=== PATIENT | female | born 1960 | race Caucasian/White ===

== ENCOUNTER 2021-12-22 13:24 | Emergency (ER) | payer OTHER, SELFPAY ==
--- NOTE | 2021-12-22 13:30 | ED.EYEPROB ---
HPI - Eye Problem General Chief complaint: Eye Problems Stated complaint: Bilateral Eye Irritation Source: patient, RN notes reviewed and old records reviewed Mode of arrival: ambulatory Limitations: no limitations History of Present Illness HPI Narrative: 61 year old female who presents to [facility] care with complaints of bilateral eye redness with irritation, itching and drainage and excessive watering since Saturday for right eye and since evening for left eye. Patient denies any visual disturbance, no acute pain stated to her eyes or any injury or foreign body to her eyes. Patient reports that she has had some sneezing and nasal drainage with her eye symptoms also, denies any fevers, chills or sweats.Visual acuity 20/20 right eye Left eye 20/25 no glasses chief complaint: eye redness Onset (ago): day(s) (2) Onset description: gradual Duration: progressively worsening Location: both eyes Eye Symptoms: redness, itching, discharge and other (irritation and increased watering) Treatments Prior to Arrival: irrigated eye Related Data Home Medications Medication Instructions Recorded Confirmed alprazolam 0.5 mg tablet 1 tablet PO DAILY 12/22/21 12/22/21 atorvastatin 40 mg tablet 1 tablet PO DAILY 12/22/21 12/22/21 fenofibrate 160 mg tablet 1 tablet PO DAILY 12/22/21 12/22/21 hydrochlorothiazide 25 mg tablet 1 tablet PO DAILY 12/22/21 12/22/21 omeprazole 40 mg capsule,delayed 1 cap PO DAILY 12/22/21 12/22/21 release phentermine 37.5 mg tablet 0.5 tablet PO DAILY 12/22/21 12/22/21 topiramate 100 mg tablet 1 tablet PO DAILY 12/22/21 12/22/21 Allergies Allergy/AdvReac Type Severity Reaction Status Date / Time No Known Allergies Allergy Mild Verified 12/22/21 13:25 Review of Systems Review of Systems: CONSTITUTIONAL: Denies fever, chills, or sweats. EYES: Denies visual changes, positive for bilateral redness, or discharge, excessive watering ENT: Denies rhinorrhea, congestion, sore throat, or otalgia. CARDIOVASCULAR: Denies chest pain, palpitations, or edema. RESPIRATORY: Denies cough or dyspnea. GASTROINTESTINAL: Denies abdominal pain, nausea, vomiting, or diarrhea. GENITOURINARY: Denies dysuria or hematuria. SKIN: Denies rash or itching. MUSCULOSKELETAL: Denies back pain, joint pain, or myalgia. NEUROLOGIC: Denies headache, numbness, or weakness. PSYCHIATRIC: Denies anxiety or depression. All systems reviewed & are unremarkable except as noted in HPI and below PMFSH Past Medical History Medical History (Updated 12/23/21 @ 18:23 by Kalani Griffin NP) Elevated cholesterol GERD (gastroesophageal reflux disease) Hypertension Surgical History Surgical History (Updated 12/23/21 @ 18:24 by Kalani Griffin NP) History of cholecystectomy S/p bilateral carpal tunnel release Tubal ligation status Social History Social History (Updated 12/23/21 @ 18:27 by Kalani Griffin NP) Smoking status: Never smoker Alcohol intake: current Alcohol use details: Rare social Substance use: never Living arrangements: with family Gender identity (if verbalized by the patient): Female Comments At time of signature, agree with nursing past medical, surgical, social and family history. There is no relevant family history pertinent to the presenting complaint Exam Narrative: GENERAL: Well-appearing, well-nourished, and in no acute distress. HEAD: Normocephalic, atraumatic. EYES: PERRLA and EOMI. bilateral sclera redness with conjunctival redness on right yellow drainage bilaterally no acute pain eyes, itchy ENT: Nares clear, no rhinorrhea or epistaxis. Mucous membranes moist. NECK: Supple. No lymphadenopathy CHEST: Clear to auscultation. No respiratory distress. SaO2 100% on room air HEART: Regular rate and rhythm. No murmur heard. Normal peripheral pulses. ABDOMEN: Soft, nontender, nondistended, normal active bowel sounds. EXTREMITIES: Normal range of motion. No edema. SKIN: Warm, dry, no rash. NEURO
[2021-12-22 13:34] VITALS: BP 138/83; PULSE 77; RESP 12; TEMP 36.6; O2SAT 100
== END 2021-12-22 13:58 | disposition home or self-care (01) ==
PROVIDERS: Emergency Provider Registered Nurse; PCP Internal Medicine
DX: H10.9 Unspecified conjunctivitis (principal); E78.00 Pure hypercholesterolemia, unspecified; K21.9 Gastro-esophageal reflux disease without esophagitis; I10 Essential (primary) hypertension
CPT/HCPCS: 99213; G0463

== ENCOUNTER 2023-01-27 13:05 | Emergency (ER) | payer OTHER, SELFPAY ==
[2023-01-27 13:23] VITALS: BP 127/77; PULSE 90; RESP 18; TEMP 36.3; O2SAT 98
--- NOTE | 2023-01-27 13:40 | ED.GENADULT ---
HPI - General Adult General Chief complaint: Skin/Abscess/Foreign Body Stated complaint: lower extemity pain Time Seen by Provider: 01/27/23 13:40 Source: patient Mode of arrival: ambulatory Limitations: no limitations History of Present Illness HPI narrative: 63-year-old female patient presents to the [facility] with complaints of left lower extremity pain. Patient states that she thinks she might have been bit by a spider but started having itchiness to the leg and notice redness, warmth and swelling to the left lower leg yesterday. Related Data Home Medications Medication Instructions Recorded Confirmed alprazolam 0.5 mg tablet 1 tablet PO DAILY 12/22/21 01/27/23 fenofibrate 160 mg tablet 1 tablet PO DAILY 12/22/21 01/27/23 hydrochlorothiazide 25 mg tablet 1 tablet PO DAILY 12/22/21 01/27/23 omeprazole 40 mg capsule,delayed 1 cap PO DAILY 12/22/21 01/27/23 release phentermine 37.5 mg tablet 0.5 tablet PO DAILY 12/22/21 01/27/23 topiramate 100 mg tablet 1 tablet PO DAILY 12/22/21 01/27/23 ergocalciferol (vitamin D2) 1,250 1,250 mcg PO DAILY 01/27/23 01/27/23 mcg (50,000 unit) capsule terbinafine HCl 250 mg tablet 250 mg PO DAILY 01/27/23 01/27/23 Allergies Allergy/AdvReac Type Severity Reaction Status Date / Time meloxicam Allergy Diarrhea Verified 01/27/23 13:38 Review of Systems Review of Systems: CONSTITUTIONAL: Denies fever, chills, or sweats. EYES: Denies visual changes, redness, or discharge. ENT: Denies rhinorrhea, congestion, sore throat, or otalgia. CARDIOVASCULAR: Denies chest pain, palpitations, or edema. RESPIRATORY: Denies cough or dyspnea. GASTROINTESTINAL: Denies abdominal pain, nausea, vomiting, or diarrhea. GENITOURINARY: Denies dysuria or hematuria. SKIN: Denies rash or itching. Positive lower extremity rash/pain since yesterday MUSCULOSKELETAL: Denies back pain, joint pain, or myalgia. NEUROLOGIC: Denies headache, numbness, or weakness. PSYCHIATRIC: Denies anxiety or depression. [facility] Past Medical History Medical History Elevated cholesterol GERD (gastroesophageal reflux disease) Hypertension Surgical History Surgical History History of cholecystectomy S/p bilateral carpal tunnel release Tubal ligation status Social History Social History Smoking status: Never smoker Alcohol intake: current Alcohol use details: Rare social Substance use: never Living arrangements: with family Gender identity (if verbalized by the patient): Female Comments At the time of my signature I agree with nursing past medical history, surgical, social, and family history. There is no relevant family history pertinent to the presenting complaint. Exam Narrative: GENERAL: Well-appearing, well-nourished, and in no acute distress. HEAD: Normocephalic, atraumatic. EYES: PERRLA and EOMI. ENT: Nares clear, no rhinorrhea or epistaxis. Mucous membranes moist. NECK: Supple. No lymphadenopathy CHEST: Clear to auscultation. No respiratory distress. HEART: Regular rate and rhythm. No murmur heard. Normal peripheral pulses. ABDOMEN: Soft, nontender, nondistended, normal active bowel sounds. EXTREMITIES: Normal range of motion. No edema. SKIN: Warm, dry, no rash. patient does have a distinct line of redness from the mid anterior calf all the way down to her foot. It is red, warm to the touch and there does appear to be some bites to the back calf area. No obvious abscess noted anywhere. NEURO: No focal deficits. Alert and oriented x3. Course Course Level of Care: Express Care Visit Vital Signs Vital signs: Vital Signs Temperature 36.3 C L 01/27/23 13:23 Pulse Rate 90 01/27/23 13:23 Respiratory Rate 18 01/27/23 13:23 Blood Pressure 127/77 01/27/23 13:23 Pulse Oximetry 98 01/27/23 13:23 Oxygen Delivery
== END 2023-01-27 13:58 | disposition home or self-care (01) ==
PROVIDERS: Emergency Provider Nurse Practitioner Family
DX: L03.116 Cellulitis of left lower limb (principal); E78.00 Pure hypercholesterolemia, unspecified; K21.9 Gastro-esophageal reflux disease without esophagitis; I10 Essential (primary) hypertension
CPT/HCPCS: 99213; G0463

== ENCOUNTER 2024-06-21 13:59 | Emergency (ER) | payer OTHER, SELFPAY ==
[2024-06-21 14:15] VITALS: BP 96/59; PULSE 84; RESP 18; TEMP 36.7; O2SAT 96
--- NOTE | 2024-06-21 14:31 | ED_ITS ---
HPI - General Adult General Chief complaint: Upper Respiratory Infection Stated complaint: congestion Time Seen by Provider: 06/21/24 14:31 Source: patient Mode of arrival: ambulatory Limitations: no limitations Related Data Home Medications ?Medication ?Instructions ?Recorded ?Confirmed ?Last Taken ?Type alprazolam 0.5 mg tablet 1 tablet PO DAILY 12/22/21 01/27/23 Unknown History fenofibrate 160 mg tablet 1 tablet PO DAILY 12/22/21 01/27/23 Unknown History hydrochlorothiazide 25 mg tablet 1 tablet PO DAILY 12/22/21 01/27/23 Unknown History omeprazole 40 mg capsule,delayed 1 cap PO DAILY 12/22/21 01/27/23 Unknown History release phentermine 37.5 mg tablet 0.5 tablet PO DAILY 12/22/21 01/27/23 Unknown History topiramate 100 mg tablet 1 tablet PO DAILY 12/22/21 01/27/23 Unknown History ergocalciferol (vitamin D2) 1,250 1,250 mcg PO DAILY 01/27/23 01/27/23 Unknown History mcg (50,000 unit) capsule terbinafine HCl 250 mg tablet 250 mg PO DAILY 01/27/23 01/27/23 Unknown History Allergies Allergy/AdvReac Type Severity Reaction Status Date / Time meloxicam AdvReac Intermediate Diarrhea Verified 06/21/24 14:14 Review of Systems Review of Systems: CONSTITUTIONAL: Denies fever, chills, or sweats. EYES: Denies visual changes, redness, or discharge. ENT: Denies rhinorrhea, congestion, sore throat, or otalgia. CARDIOVASCULAR: Denies chest pain, palpitations, or edema. RESPIRATORY: Denies cough or dyspnea. GASTROINTESTINAL: Denies abdominal pain, nausea, vomiting, or diarrhea. GENITOURINARY: Denies dysuria or hematuria. SKIN: Denies rash or itching. MUSCULOSKELETAL: Denies back pain, joint pain, or myalgia. NEUROLOGIC: Denies headache, numbness, or weakness. PSYCHIATRIC: Denies anxiety or depression. [facility] Past Medical History Medical History GERD (gastroesophageal reflux disease) Hypertension Elevated cholesterol Surgical History Surgical History History of cholecystectomy Tubal ligation status S/p bilateral carpal tunnel release Social History Social History Smoking status: Never smoker Alcohol intake: current Alcohol use details: Rare social Substance use: never Living arrangements: with family Gender identity (if verbalized by the patient): Female Comments At the time of my signature I agree with nursing past medical history, surgical, social, and family history. There is no relevant family history pertinent to the presenting complaint. Exam Narrative: GENERAL: Well-appearing, well-nourished, and in no acute distress. HEAD: Normocephalic, atraumatic. EYES: PERRLA and EOMI. ENT: Nares clear, no rhinorrhea or epistaxis. Mucous membranes moist. NECK: Supple. No lymphadenopathy CHEST: Clear to auscultation. No respiratory distress. HEART: Regular rate and rhythm. No murmur heard. Normal peripheral pulses. ABDOMEN: Soft, nontender, nondistended, normal active bowel sounds. EXTREMITIES: Normal range of motion. No edema. SKIN: Warm, dry, no rash. NEURO: No focal deficits. Alert and oriented x3. Course Course Level of Care: Express Care Visit Reevaluation(s) Reevaluation #1: Re-evaluated patient notified her that her swabs are negative today. Discussed with her she most likely has a colder virus. discussed with patient she can continue taking [id number] medication for her symptoms and I will give her some Tessalon Perles for the cough as well some Flonase for the nasal congestion. Discussed with patient if she feels that her symptoms are getting worse she should follow-up with her primary doctor go to the ER for further evaluation. Patient verbalized understanding denies any other questions or concerns this time. Date: 06/21/24 Time: 14:44 Vital Signs Vital signs: Vital Signs Temperature 36.7 C 06/21/24 14:15 Pulse Rate 84 06/21/24 14:15 Respiratory Rate 18 06/21/24 14:15 Blood Pressure 96/59 L 06/21/24 14:15 Pulse Oximetry 96 06/21/24 14:15 Oxygen Delivery Room Air 06/21/24 14:15 Temperature 36.7 C 06/21/24 14:15 Pulse Rate 84 06/21/24 14:15 Respiratory Rate 18 06/21/24 14:15 Blood Pressure 96/59 L 06/21/24 14:15 Pulse Oximetry 96 06/21/24 14:15 Oxygen Delivery Room Air 06/21/24 14:15 Medical Decision Making Differential Diagnosis Differential Diagnosis: Differential diagnosis: Allergic rhinitis, chronic sinusitis, tonsillitis, acute sinusitis, infectious mononucleosis, seasonal influenza, pertussis, diphtheria, meningococcal disease, viral syndrome, viral bronchitis, RSV, COVID- 19 Vital Signs Vital Signs: Vital Signs Temperature 36.7 C 06/21/24 14:15 Pulse Rate 84 06/21/24 14:15 Respiratory Rate 18 06/21/24 14:15 Blood Pressure 96/59 L 06/21/24 14:15 Pulse Oximetry 96 06/21/24 14:15 Oxygen Delivery Room Air 06/21/24 14:15 Temperature 36.7 C 06/21/24 14:15 Pulse Rate 84 06/21/24 14:15 Respiratory Rate 18 06/21/24 14:15 Blood Pressure 96/59 L 06/21/24 14:15 Pulse Oximetry 96 06/21/24 14:15 Oxygen Delivery Room Air 06/21/24 14:15 Lab Data Labs: Lab Results 06/21/24 Range/Units 14:31 POC Influenza A Ag Negative (Negative) POC Influenza B Ag Negative (Negative) POC SARS CoV-2 Ag Negative (Negative) Critical Care Time Critical Care Time Critical Care Time: No Discharge Plan Discharge Clinical Impression: Viral URI with cough Patient Disposition: Home, Self-Care Condition: Stable Instructions: Antibiotic Form, Viral Syndrome (ED) Additional Instructions: Viral illness may last between 7-12days; antibiotic is NOT recommended at this time. Recommend antihistamine such as Benadryl at night time and Claritin/Zyrtec/Marah during the day Cough syrup may cause drowsiness; avoid driving or take it at night time. Use inhaler as needed for cough, wheezing, shortness of breath or chest tightness. Also, recommend symptomatic treatment includes: rest, fluids, and increase humidity of the air at home. Recommend Acetaminophen or nonsteroidal anti-inflammatory agents (NSAIDs) as directed in the bottle to reduce fever and/pain/headache. Avoid smoking/second-hand smoke. Limit visits to areas with large crowds. Please schedule a follow-up visit with your personal physician for further evaluation and treatment within 3-5days. Including recheck and discussion of your blood pressure. If your symptoms persist, change or worsen significantly before you can contact your personal physician then please, without delay, go to the emergency department for further evaluation. Patient Language: Amharic Prescriptions: New benzonatate 200 mg capsule 200 mg PO TID PRN (Reason: cough) 10 Days Qty: 30 0RF fluticasone propionate [Flonase Allergy Relief] 50 mcg/actuation spray,suspension 1 spray NASAL BID Qty: 15.8 0RF Rx Instructions: administer into each nostril No Action phentermine 37.5 mg tablet 0.5 tablet PO DAILY omeprazole 40 mg capsule,delayed release(DR/EC) 1 cap PO DAILY alprazolam 0.5 mg tablet 1 tablet PO DAILY hydrochlorothiazide 25 mg tablet 1 tablet PO DAILY topiramate 100 mg tablet 1 tablet PO DAILY fenofibrate 160 mg tablet 1 tablet PO DAILY terbinafine HCl 250 mg tablet 250 mg PO DAILY ergocalciferol (vitamin D2) 1,250 mcg (50,000 unit) capsule 1,250 mcg PO DAILY cephalexin 500 mg tablet 500 mg PO QID 7 Days Qty: 28 0RF Follow-up/Referrals: Jose Alberto,ARBEN Fang [Primary Care Provider] - Stand Alone Forms: Work/School Release IP Time of Disposition: 14:39
[2024-06-21 14:33] LABS: EDCOVIDSCREEN Negative (Negative); EDINFLUASCREEN Negative (Negative); EDINFLUBSCREEN Negative (Negative)
== END 2024-06-21 14:41 | disposition home or self-care (01) ==
PROVIDERS: Emergency Provider Nurse Practitioner Family; PCP Physician Assistant
DX: J06.9 Acute upper respiratory infection, unspecified (principal); R05.9 Cough, unspecified; Z20.822 Contact with and (suspected) exposure to COVID-19; I10 Essential (primary) hypertension; E78.00 Pure hypercholesterolemia, unspecified; K21.9 Gastro-esophageal reflux disease without esophagitis
CPT/HCPCS: 87426; 87804; 99213; G0463

== ENCOUNTER 2024-12-06 13:33 | Emergency (ER) | payer OTHER, SELFPAY ==
[2024-12-06 13:45] VITALS: BP 132/76; PULSE 78; RESP 18; TEMP 36.9; O2SAT 98
[2024-12-06 13:55] LABS: EDSTREPNEGPOS1 Negative (Negative)
--- NOTE | 2024-12-06 14:14 | ED.URI ---
HPI - URI/Sore Throat General Chief Complaint: Upper Respiratory Infection Stated Complaint: Sore Throat Source: patient Mode of arrival: ambulatory Limitations: no limitations History of Present Illness HPI Narrative: Patient is a 64-year-old female who presents to the clinic with complaints of a sore throat, sinus pressure, fever of 101.4 and a cough x 2 days. She states that she has taken a one time dose of Claritin, and felt some relief. She denies any shortness of breath, nausea, vomiting or diarrhea. Related Data Home Medications ?Medication ?Instructions ?Recorded ?Confirmed ?Last Taken ?Type alprazolam 0.5 mg tablet 1 tablet PO DAILY 12/22/21 12/06/24 Unknown History fenofibrate 160 mg tablet 1 tablet PO DAILY 12/22/21 12/06/24 Unknown History hydrochlorothiazide 25 mg tablet 1 tablet PO DAILY 12/22/21 12/06/24 Unknown History omeprazole 40 mg capsule,delayed 1 cap PO DAILY 12/22/21 12/06/24 Unknown History release phentermine 37.5 mg tablet 0.5 tablet PO DAILY 12/22/21 01/27/23 Unknown History topiramate 100 mg tablet 1 tablet PO DAILY 12/22/21 12/06/24 Unknown History ergocalciferol (vitamin D2) 1,250 1,250 mcg PO DAILY 01/27/23 12/06/24 Unknown History mcg (50,000 unit) capsule terbinafine HCl 250 mg tablet 250 mg PO DAILY 01/27/23 12/06/24 Unknown History Allergies Allergy/AdvReac Type Severity Reaction Status Date / Time meloxicam AdvReac Intermediate Diarrhea Verified 12/06/24 13:38 Review of Systems Review of Systems: CONSTITUTIONAL: Denies body aches, chills, or sweats. Reports fever. EYES: Denies visual changes, redness, or discharge. ENT: Reports sore throat and congestion. Denies otalgia. CARDIOVASCULAR: Denies chest pain, palpitations, or edema. RESPIRATORY: Denies dyspnea. Reports cough. GASTROINTESTINAL: Denies abdominal pain, nausea, vomiting, or diarrhea. SKIN: Denies rash. NEUROLOGIC: Denies headache All systems reviewed & are unremarkable except as noted in HPI and below PMFSH Past Medical History Medical History GERD (gastroesophageal reflux disease) Hypertension Elevated cholesterol Surgical History Surgical History History of cholecystectomy Tubal ligation status S/p bilateral carpal tunnel release Social History Social History Smoking status: Never smoker Alcohol intake: current Alcohol use details: Rare social Substance use: never Living arrangements: with family Gender identity (if verbalized by the patient): Female Comments At time of signature, I have reviewed and agree with nursing past medical, surgical, social and family history unless otherwise noted. Please see nursing chart for further information. There is no relevant family history pertinent to the presenting complaint. Exam Narrative: GENERAL: mildly ill-appearing, ?no acute distress. EYES: ?conjunctivae clear ENT: Mucous membranes moist. TM pearly mcrae with normal light reflex bilaterally; no tragal tenderness. Oropharynx mildly erythematous without lesions. Tonsils not enlarged and without exudate. No drooling, no hoarseness, no trismus, uvula midline. No tripod positioning, hot potato voice, or soft palate swelling. NECK: Supple. No lymphadenopathy. CHEST: Clear to auscultation, breath sounds equal. ?No respiratory distress, speaks in full sentences. HEART: Regular rate and rhythm. No murmur heard. SKIN: Warm, dry, no rash. NEURO: Alert and oriented x3.? Course Course Level of Care: Express Care Visit Vital Signs Vital signs: Vital Signs Temperature 98.4 F 12/06/24 13:45 Pulse Rate 78 12/06/24 13:45 Respiratory Rate 18 12/06/24 13:45 Blood Pressure 132/76 12/06/24 13:45 Pulse Oximetry 98 12/06/24 13:45 Oxygen Delivery Room Air 12/06/24 13:45 Temperature 98.4 F 12/06/24 13:45 Pulse Rate 78 12/06/24 13:45 Respiratory Rate 18 12/06/24 13:45 Blood Pressure 132/76 12/06/24 13:45 Pulse Oximetry 98 12/06/24 13:45 Oxygen Delivery Room Air 12/06/24 13:45 reviewed. MDM - URI/Sore Throat MDM Narrative Medical decision making narrative: Discussed physical exam findings. Advised supportive measures and signs/symptoms to go to the ER. Pt is appropriate for outpatient treatment and follow up. Differential Diagnosis Differential diagnosis: Likely upper respiratory infection, viral infection and other (Strep throat, allergies) Lab Data Attestation: I reviewed the patient's lab results. Labs: Lab Results 12/06/24 Range/Units 13:52 POC Grp A Strep Screen Negative (Negative) Critical Care Time Critical Care Time Critical Care Time: No Discharge Plan Discharge Clinical Impression: Upper respiratory infection Qualifiers: URI type: unspecified URI Qualified Code(s): J06.9 - Acute upper respiratory infection, unspecified Patient Disposition: Home Condition: Stable Instructions: Upper Respiratory Infection (DC) Additional Instructions: Rapid strep swab was negative today. You will be notified in a few days if the culture comes back positive for strep, and appropriate antibiotics will be called in at that time. if symptoms are due to a viral illness, it is not treated with antibiotics. Viral symptoms can be present for up to 10-14 days. Recommend Flonase spray and Zyrtec (or Claritin/Marah) Tylenol 1000mg every 8 hours as needed for pain Symptomatic treatment includes: rest, fluids, and increase humidity of the air at home. Follow up with your primary care provider in 1 week. Go to the ER for worsening symptoms or concerns. Patient Language: Kinyarwanda Prescriptions: No Action fluticasone propionate [Flonase Allergy Relief] 50 mcg/actuation spray,suspension 1 spray NASAL BID Qty: 15.8 0RF Rx Instructions: administer into each nostril phentermine 37.5 mg tablet 0.5 tablet PO DAILY omeprazole 40 mg capsule,delayed release(DR/EC) 1 cap PO DAILY alprazolam 0.5 mg tablet 1 tablet PO DAILY hydrochlorothiazide 25 mg tablet 1 tablet PO DAILY topiramate 100 mg tablet 1 tablet PO DAILY fenofibrate 160 mg tablet 1 tablet PO DAILY terbinafine HCl 250 mg tablet 250 mg PO DAILY ergocalciferol (vitamin D2) 1,250 mcg (50,000 unit) capsule 1,250 mcg PO DAILY Follow-up/Referrals: PHYSICIAN,PROVINCE ARCHIVIST [Primary Care Provider] - Time of Disposition: 14:04
== END 2024-12-06 14:05 | disposition home or self-care (01) ==
PROVIDERS: Nurse Practitioner
DX: J06.9 Acute upper respiratory infection, unspecified (principal); I10 Essential (primary) hypertension; E78.00 Pure hypercholesterolemia, unspecified; K21.9 Gastro-esophageal reflux disease without esophagitis
CPT/HCPCS: 87081; 87880; 99213; G0463